=== PATIENT | male | born 1940 | race Caucasian/White ===

== ENCOUNTER 2016-10-07 14:22 | Emergency (ER) | payer MEDICARE ==
[~2016-10-07] VITALS: Ht 172.7 cm; Wt 123.3 kg
[~2016-10-07 14:22] MED LIST: ALLO300T2 PO; AMOX1TAB12 PO; ASPI-860 PO; DUTA1CPM PO; HYDR-3702 PO; LSNP10T PO; LVT.025T PO; OMEP20TA PO
--- OUTSIDE RECORDS SUMMARY | 2016-10-07 14:26 | XMS REPORT | Continuity of Care Document ---
Author Author [facility] Address Unknown Phone Unavailable Care Team Providers Care Telecommunications Consultant Name Role Phone Leandro Alvarez MD PCP [phone] Insurance Providers Payer Name Policy Number Subscriber Name Relationship Medicare A And B [id number] Cristobal Arce 18 Self / Same As Patient Blue [employer] [facility] Supp [id number] Cristobal Arce 20 Self / Same As Patient Advance Directives Directive Response Recorded Date/Time Advanced Directives No 07/07/16 8:20pm Type Living Will 12/15/13 7:28am Chief Complaint and Reason for Visit Chief Complaint Injury Reason for Visit Lip laceration Contusion of right knee Problems Active Problems Medical Problem Onset Date Status Contusion of right knee ~07/07/2016 Acute Esophagogastroduodenoscopy Unknown Acute Lip laceration ~07/07/2016 Acute Medications Current Home Medications Medication Dose Units Route Directions Days/Qty Instructions Start Date Dutasteride/Tamsulosin Hcl 1 Each 1 Each ORAL Daily 12/14/13 Levothyroxine Sodium (Synthroid) 25 Mcg 25 Mcg ORAL Daily 12/14/13 Omeprazole 20 Mg 20 Mg ORAL Twice A Day 12/14/13 Allopurinol 300 Mg 300 Mg ORAL Daily 90 07/07/16 Amoxicillin/Clavulanate Potassium 1 Each 1 Tab ORAL Twice A Day for Infection 20 07/07/16 Past Home Medications Medication Directions Ordered Status Hydrocodone Bit/Acetaminophen 1 Each Tablet, 1 Each Oral As Needed 12/14/13 Discontinued Aspirin 81 Mg Tablet.dr 81 Mg Oral Daily 12/14/13 Discontinued Lisinopril (Zestril) 10 Mg Tablet, 10 Mg Oral Daily 12/14/13 Discontinued Social History Query Response Start Date Stop Date Smoking Status Never smoker Hospital Discharge Instructions No hospital discharge instructions. Plan of Care Discharge Date 07/07/16 9:56pm Disposition 01 HOME OR SELF-CARE Condition at Discharge Stable Instructions/Education Provided Concussion (ED) Acute Wound Care (ED) Prescriptions See Medication Section Referrals Leandro Alvarez MD - Additional Instructions/Education Augmentin 875mg as Rx'd, twice a day with food x10 days. Topical antibiotic to Right lower lip, twice a day until healed. Need to remain with responsible adults for 48 hours who have read the dismissal instructions pertaining to head injury, and return to the ER right away if any of the signs or symptoms listed occur. OTC Tylenol, dose per bottle, every 6-8 hours as needed for headache; NO prescription pain meds for now; RETURN to ER for a severe headache (level 6 or greater). No high impact activities until cleared by a health provider in 7 days. We updated your Tetanus today in the ER. Recheck with your health provider in 2 days. Some of your test results may not be complete prior to your leaving the Emergency Department. The Emergency Department is not authorized to give test results over the phone. Please contact the doctor's office listed in this packet of information for your final results. Follow up with your primary care physician or return to the Emergency Department for worsening or worrisome symptoms. * Emergency Department phone number: [phone], x [phone] MEDICAL RECORD If you need copies of your X-rays, call [phone]. If you need copies of your medical record, including lab results, a signed authorization for release of records will be required. A telephone call for release of Health Information is not allowed. BILLING Billing can sometimes be confusing and frustrating. To help avoid confusion in the future, please take a moment to acquaint yourself with the billing parties for services. SERVICE BILLING [employer]STITUTION [employer] Emergency [facility] Patients will receive bills for services from the appropriate provider. If you have any questions about your [facility] bill, our staff will be happy to assist you. Please call [phone], and ask for the billing department. THANK YOU for choosing [facility] as your emergency care provider! Care Plan and Goals ~~Discharge Care Plan~~ Problem: Lip laceration, injury Goal: Wound is closed with edges lined up, and will heal without redness, drainage or signs of infection. Instructions: Keep wound clean and dry. Apply antibiotic ointment as directed. Follow physician discharge instructions. Keep wound covered if working in an unclean environment. Wear gloves if working with food in a work environment. Return to ED if needed, symptoms change or worsen Functional Status No functional status results. Allergies, Adverse Reactions, Alerts No known allergies. Immunizations Name Given Type Status Tdap 07/07/16 Administered Completed Vital Signs Acute Vital Signs Vital Response Date/Time Temperature (Fahrenheit) 97.8 07/07/2016 8:20pm Pulse 66 bpm 07/07/2016 10:03pm Respirations 18 07/07/2016 10:03pm Height 5 ft 8 in Weight 263 lb Body Mass Index 40.0 kg/m^2 Results No known relevant diagnostic tests, laboratory data and/or discharge summary. Procedures No known history of procedures. Encounters Encounter Location Arrival/Admit Date Discharge/Depart Date Attending Provider Departed Emergency Room [facility] 07/07/16 8:18pm 07/07/16 9:56pm YUDELKA SUTHERLAND MD Recent Diagnosis
[2016-10-07] MEDS ORDERED: TAMS0.4C2 PO (14:44)
[2016-10-07] MEDS ORDERED: TRM50T PO (17:05)
[2016-10-07] MEDS ORDERED: SULF1TAB35 PO (17:06)
[2016-10-07 17:21] VITALS: BP 140/74
--- NOTE | 2016-10-08 06:13 | Diagnostic Imaging Report ---
Clinical indication: Patient with left leg pain. Comparison: None Procedure: Real-time left lower extremity venous Doppler duplex evaluation is performed from the inguinal region through the popliteal fossa. The calf venous structures are also evaluated. Findings: The deep venous system is well visualized and is easily compressible. There is no evidence of deep venous thrombosis or significant collateral circulation. Impression: There is no ultrasound Doppler evidence of deep venous thrombosis in the left lower extremity. Dictated by: Dictated on workstation # [id number]
[2016-11-28] MEDS ORDERED: MINO100C2 PO (18:41)
[2016-11-28] MEDS ORDERED: LEVO50TA6 PO (18:41)
[2016-11-28] MEDS ORDERED: MECL-105 PO (19:43)
== END 2016-10-07 17:36 | disposition home or self-care (01) ==
LOC: ED 14:26
DX: L03.116 Cellulitis of left lower limb (principal); G62.9 Polyneuropathy, unspecified
CPT/HCPCS: 99282; 99283

== ENCOUNTER 2016-11-28 17:47 | Emergency (ER) | payer MEDICARE ==
[~2016-11-28] VITALS: Ht 172.7 cm; Wt 123.0 kg
[2016-11-28 18:31] LABS: BASOPHILS % (AUTO) 0 % (0-2); EOSINOPHILS # (AUTO) 0.1 10^3uL; EOSINOPHILS % (AUTO) 1 % (0-4); LYMPHOCYTES # (AUTO) 0.9 X10^3; MEAN CORPUSCULAR HEMOGLOBIN 30.7 PG (26.0-34.0); MEAN CORPUSCULAR HGB CONC 34.8 g/dL (31.0-37.0); MEAN CORPUSCULAR VOLUME 88 FL (80-100); MEAN PLATELET VOLUME 10.7 FL (6.0-9.5); MONOCYTES # (AUTO) 0.7 X10^3; MONOCYTES % (AUTO) 9 % (3-11); NEUTROPHILS # (AUTO) 6.7 X10^3; NEUTROPHILS % (AUTO) 79 % (51-67); PLATELET COUNT 187 10^3uL (150-450); WHITE BLOOD COUNT 8.38 10^3uL (4.0-11.0)
[2016-11-28] MEDS ORDERED: ONDANSETRON 2 MG/ML (Z0FRAN) 2 ML VIAL IV ONE (18:40)
[2016-11-28] MEDS ORDERED: MECLIZINE 25 MG (ANTIVERT) TABLET PO ONE (18:40)
[2016-11-28 18:45] LABS: ALKALINE PHOSPHATASE 104 U/L (38-126); ANION GAP 15.5 MEQ/L (3-15); BUN/CREATININE RATIO 20 (10-20); CALCULATED IONIZED CALCIUM 4.3 mg/dL (3.8-4.6); CREATINE KINASE 64 U/L (55-170); TOTAL PROTEIN 7.1 g/dL (6.4-8.5)
--- NOTE | 2016-11-28 19:12 | NUR ---
Pt ambulates to bathroom. Denies dizziness or nausea at this time.
[2016-11-28 19:36] LABS: BILIRUBIN,URINE Negative (Negative); GLUCOSE, URINE (UA) Negative (Negative); LEUKOCYTE ESTERASE ,URINE Negative (Negative); UROBILINOGEN,URINE 0.2 mg/dL (0.2-1.0)
[2016-11-28 19:37] LABS: CLARITY,URINE Slightly Cloudy; COLOR,URINE Dark Yellow
[2016-11-28 19:44] LABS: AMPHETAMINE SCREEN, URINE Negative (Negative); CANNABINOID SCREEN, URINE Negative (Negative); METHAMPHETAMINE SCREEN URINE S NEGATIVE (NEGATIVE); OPIATE SCREEN URINE Negative (Negative); PROPOXYPHENE STAT NEGATIVE (NEGATIVE)
[2016-11-28 19:58] VITALS: BP 122/84
== END 2016-11-28 19:59 | disposition home or self-care (01) ==
LOC: ED 17:48
DX: H81.42 Vertigo of central origin, left ear (principal); E03.9 Hypothyroidism, unspecified; R26.81 Unsteadiness on feet; R11.2 Nausea with vomiting, unspecified
CPT/HCPCS: 36415; 70450; 80053; 81003; 82550; 82553; 83880; 84443; 84484; 85025; 85610; 86140; 93005; 96374; 99284; A9270; G0478; G0480; J2405; 80307; 80320; 93010; 99285

== ENCOUNTER → 2016-11-28 | Outpatient (CLI) | payer MEDICARE | LOC: EMS 17:35 | PROVIDERS: ATTEND Family Medicine | DX: R42 Dizziness and giddiness (principal); R55 Syncope and collapse ==